=== PATIENT | male | born 1955 | race Caucasian/White ===

== ENCOUNTER 2018-11-09 18:22 | Emergency (ER) | payer OTHER ==
[~2018-11-09] VITALS: Ht 177.8 cm; Wt 77.3 kg
[2018-11-09] MEDS ORDERED: LIDOCAINE 1% (MDV) 10 ML INJ INJ STA (18:35)
[2018-11-09 18:39] VITALS: Ht 177.8 cm; Wt 77.3 kg
[2018-11-09] MEDS ORDERED: LIDOCAINE 1% (MPF) 5 ML VIAL INJ SCH (19:00)
[2018-11-09] MEDS ORDERED: CEPH-443 PO (19:41)
[2018-11-09] MEDS ORDERED: SULF1TAB31 PO (19:41)
--- NOTE | 2018-11-09 19:59 | ERD ---
ER Documentation Chief Complaint Chief Complaint bib private amb from [facility] for eval of upper back abscess HPI 63-year-old male presenting from [facility] with history of recurrent sebaceous cyst, presents for evaluation of possible incision and drainage of sebaceous cyst over his right upper back, with concern for possible infection. Patient denies fever, no systemic symptoms. Endorses pain to his right upper back. ROS All systems reviewed and are negative except as per history of present illness. Medications Home Meds Active Scripts Cephalexin* (Keflex*) 500 Mg Capsule, 500 MG PO QID for 7 Days, CAP Prov:WISAM PIZARRO MD 11/09/18 Sulfamethoxazole/Trimethoprim* (Bactrim Ds* Tablet) 1 Each Tablet, 1 TAB PO BID, #14 TAB Prov:WISAM PIZARRO MD 11/09/18 Allergies Allergies: Coded Allergies: No Known Drug Allergies (Verified Allergy, Unknown, 11/09/18) Physical Exam Vitals Vital Signs Date Temp Pulse Resp B/P (MAP) Pulse Ox O2 O2 Flow FiO2 Time Delivery Rate 11/09/18 95 20 105/75 97 Room Air 19:13 (85) 11/09/18 99.1 92 16 102/69 96 18:39 (80) Physical Exam Const: No acute distress Head: Atraumatic Eyes: Normal Conjunctiva ENT: Normal External Ears, Nose and Mouth. Neck: Full range of motion. No meningismus. Resp: Clear to auscultation bilaterally Cardio: Regular rate and rhythm, no murmurs Abd: Soft, non tender, non distended. Normal bowel sounds Skin: No petechiae or rashes Back: No midline or flank tenderness. There is a large approximate 6 x 6 cm area of erythema induration and fluctuance over the right upper back. There is no crepitus Ext: No cyanosis, or edema Neur: Awake and alert Psych: Normal Mood and Affect Results 24 hrs Current Medications Medications Dose Sig/Cathy Start Time Status Last (Trade) Ordered Route PRN Stop Time Admin Dose Reason Admin Lidocaine 10 ml ONCE STAT 11/09/18 DC HCl INJ 18:35 (Lidocaine 11/09/18 18:39 1% (Mdv) 10 ml) Lidocaine 10 ml ONCE INJ 11/09/18 (Xylocaine 19:00 1% (Mpf)) 11/09/18 20:00 Procedures/MDM This 63-year-old male presenting from [facility], who was present for evaluation of a sebaceous cyst which appears to be superimposed with infection, incident and drainage performed without complication, the patient is stable for discharge back to his facility, he will be discharged with Bactrim Keflex, at discharge she was in no acute distress. Abscess Incision and Drainage with irrigation by me: Location: Right upper back Anesthesia: [Local 1% Lidocaine with epinephrine] Technique: [Irrigated. Disrupted loculations w/ instrumentation] Packing: [None] Complications: [Neurovascularly intact post procedure] 48 hour wound check. Scar minimization instructions given. Patient's skin symptoms have stabilized while they have been evaluated in the department and are appropriate for outpatient care and work up. Exam and w/u not consistent w/ sepsis, deep space infection, or foreign body. Departure Diagnosis: Primary Impression: Abscess Condition: Stable Patient Instructions: Abscess, Incision And Drainage Additional Instructions: Call your primary care doctor TOMORROW for an appointment during the next 2-3 days.See the doctor sooner or return here if your condition worsens before your appointment time. WISAM PIZARRO MD Nov 09, 2018 19:59
[2018-11-09 21:30] VITALS: BP 108/76; PULSE 67; RESP 26
== END 2018-11-09 21:50 | disposition home or self-care (01) ==
LOC: E/R 18:22
DX: L02.212 Cutaneous abscess of back [any part, except buttock and flank] (principal)
CPT/HCPCS: 10060; Z7502; Z7610